=== PATIENT | female | born 1955 | race Caucasian/White ===

== ENCOUNTER 2020-04-29 03:49 | Emergency (ER) | payer BC, OTHER, SELFPAY ==
[2020-04-29 03:57] VITALS: BP 165/90; PULSE 92; RESP 17; TEMP 36.5; O2SAT 97
--- NOTE | 2020-04-29 04:00 | ED.GENADUL_ITS ---
Discharge Plan Disposition Patient Disposition: HOME Condition: Stable Discharge Details Chief Complaint: FlankPain Clinical Impression: Flank pain, Urinary tract infection Primary Care Provider: Criss,Local ED Provider: Rashad Rosen Home Meds and New Rx's Prescriptions: New levofloxacin 750 mg tablet 750 mg PO DAILY Qty: 5 RF: 0 Continued nifedipine 60 mg Tablet Extended Release 60 mg PO DAILY RF: 0 Discharge Instructions Instructions: Urinary Tract Infection in Women (ED) Additional Instructions: your cat scan did not show any kidney stone but did show degernative changes in the lumbar spine as well as a possible small splenic artery aneurysm. You should advise your primary care provider of these findings when you follow up in 1-2 weeks if you have severe worsening pain, fevers or feel more ill return to the emergency department Medical Decision Making 64 yo female with hx of htn and hld comes in with cc of left lower oblique and back pain since Friday. Denies any fevers, vomit, and no dysuria. Can't remember having pain like this in the past. She has no abdominal tenderness on exam or cva tenderness but does have pain with palpation to the left lower lumbar region. She could be having musculoskeletal back pain but given location of pain concern for possible pyelo vs kidney stone, will obtain renal colic CT and UA and monitor. Given lack of abdominal tenderness doubt intrabdominal pathology suchg as appendicitis or diverticulitis blood work unremarkable, UA consistent with infection. Will start levofloxacin to cover pyelo. CT shows no kidney stone, does have degenerative changes in the spine normal neuro exam no saddle anesthesia and also possible distal splenic artery aneurysm. I informed her of these results and she will f/u with pcp and return precautions given Differential Diagnosis Differential Diagnosis: pyelo, kidney stone, diverticulitis Imaging Data Radiologic Study: Attestation: I personally reviewed and interpreted this imaging study as follows: Imaging: CT Scan Radiologist's impression: IMPRESSION: 1. Lower lumbar degenerative disease with grade 1 anterolisthesis of L4 over L5. Central L4-L5 partially calcified disc herniation. If clinically appropriate, could consider spine MRI to better characterize. 2. Possible small distal splenic artery aneurysm. 3. Intrapelvic probable dystrophic calcifications Lab Data Lab results reviewed: Yes I reviewed the patient's lab results. HPI General Mode of arrival: ambulatory . Date/Time Provider Initiated Documentation: 04/29/20 03:51 . Limitations to Documentation: no limitations . Information obtained by: patient . History of Present Illness 64 year old F presents to the emergency department with the chief complaint of left flank pain, described as moderate, Patient started experiencing this day(s) (5) and it has been constant. No relieving factors improve symptom(s), No exacerbating factors reported . Patient did receive the following treatments prior to arrival, other (tylenol 2pm yesterday) Related Data Home Medications Medication Instructions Recorded Confirmed levofloxacin 750 mg PO DAILY #5 tab 04/29/20 nifedipine 60 mg PO DAILY 04/29/20 04/29/20 Previous Rx's Medication Instructions Recorded levofloxacin 750 mg PO DAILY #5 tab 04/29/20 Allergies Allergy/AdvReac Type Severity Reaction Status Date / Time No Known Allergies Allergy Unverified 04/29/20 04:03 Review of Systems All systems reviewed & are unremarkable except as noted in HPI and below Constitutional Constitutional: Denies chills, Denies fever(s) and Denies weakness Cardiovascular Cardiovascular: Denies chest pain and Denies dyspnea Respiratory Respiratory: Denies cough and Denies dyspnea Gastrointestinal Gastrointestinal: Denies vomiting Genitourinary Genitourinary: Denies dysuria Neurologic Neurologic: Denies weakness [facility] Social History Smoking/Tobacco Use Status: Never Drug use: Never Do you feel safe at home: Yes Do you feel safe in your relationship?: Yes Exam Const General: no acute distress Orientation: alert HENMT Head: normal to inspection Ears: external ears normal General nose exam: external nose normal Mouth: moist mucous membranes Eyes General: appearance normal, both eyes and all related structures Neck Neck: normal visual inspection Resp Effort & Inspection: normal respiratory effort and able to speak in complete sentences Cardio Rate: regular rate GI Palpation: soft and nontender Back/Spine/Pelvis Back: no CVA tenderness Skin General skin exam: no rashes or lesions noted Neuro General: patient alert and patient oriented x3 Extrem General: normal to inspection Psych Mental Status: mental status grossly normal
[2020-04-29 04:21] LABS: Abs Immature Grans 0.01 k/cumm (0.0-0.09); Absolute Basophil Count 0.04 k/cumm (0.0-0.2); Absolute Eosinophil Count 0.15 k/cumm (0.0-0.7); Absolute Lymphocyte Count 1.97 k/cumm (1.2-3.4); Absolute Monocyte Count 0.41 k/cumm (0.11-0.7); Absolute Neutrophil Count 2.62 k/cumm (1.2-6.7); Basophils % 0.8; Eosinophils % 2.9; HCT 41.2 % (36.0-46.0); Immature Grans % 0.2 %; Lymphocytes % 37.9; Mean Corpuscular Hemoglobin 31.3 pg (27.0-33.0); Mean Corpuscular Volume 92.2 fL (80-95); Monocytes % 7.9; Neutrophils % 50.3; Platelet Count 367 x1000/uL (130-400); RBC 4.47 m/cumm (4.00-5.20); RBC Distribution Width 13.1 % (11.7-14.6)
[2020-04-29 04:23] LABS: Lactate 0.5 mmol/L (0.6-1.4)
--- NOTE | 2020-04-29 04:25 | DI.CT_ITS ---
EXAM: CT RENAL COLIC WO CLINICAL HISTORY: left flank pain. TECHNIQUE: Imaging Protocol: Axial computed tomography images with coronal and sagittal reformatted images were created and reviewed. COMPARISON: No exams were available for comparison FINDINGS: ABDOMEN: Lung Bases: Minimal dependent atelectasis. Liver: Normal density. No measurable mass. Gallbladder and biliary tract: No radiodense calculus or biliary ductal dilation. Pancreas: Normal density, no abnormal calcifications or inflammatory process. Spleen: Normal. There is distal splenic artery enlargement with calcification suggesting a small aneu rysm. Kidneys: Normal size, contour and axis. No radiodense stones or obstructive uropathy. There is a 0.8 cm hypodensity in the superior pole of the right kidney which may reflect represent a cyst. Adrenal glands: No mass is seen. Lymph nodes: Within normal limits. Abdominal Aorta: Abdominal portion non-dilated. Atherosclerosis. PELVIS: Bladder: Symmetric distention, no gross wall thickening. Bowel: No obstruction or bowel wall thickening. No evidence of acute appendicitis. Moderate amount o f retained stool throughout the colon. Peritoneal cavity: No ascites, collection or mesenteric inflammatory response. Calcifications are see n in the pelvis likely reflecting phleboliths. The largest are seen in the right pelvis. Reproductive organs: The patient appears to be status post hysterectomy. Bones: Degenerative changes are present in the spine. Grade 1 pseudo spondylolisthesis of L4 on L5 i s noted. This, in conjunction with the degenerative changes and the diffuse disc bulge, appear to ca use moderately severe central spinal canal stenosis. Bilateral neural foraminal stenosis at this lev el is also noted. Soft Tissues: Within normal limits. IMPRESSION: 1. No evidence of nephrolithiasis or hydronephrosis. 2. Degenerative changes in the lumbar spine, particularly at L4-L5 which appears to cause moderately severe central spinal canal stenosis. RADIATION DOSE DELIVERED: 608.73mGy.cm Total DLP DATA REPOSITORY: All CT scans at this facility are submitted to the National Radiology Data Registry (NRDR) Dose Index Registry (DIR) with the [employer] ([employer]). RADIATION OPTIMIZATION: All CT scans at this facility use at least one of these dose optimization te chniques: automated exposure control; mA and/or kV adjustment per patient size (includes targeted exa ms where dose is matched to clinical indication); or iterative reconstruction.
[2020-04-29 04:28] LABS: Bilirubin Negative (Negative); Blood Negative (Negative); Clarity Sl Cloudy (Clear); Glucose Negative (Negative); Ketones Negative (Negative); Leukocyte Esterase Large (Negative); Nitrite Negative (Negative); Specific Gravity 1.015 (1.005-1.025); Urobilinogen 0.2 EU/dL (Up TO 0.2)
[2020-04-29 04:29] LABS: Bacteria Moderate HPF (Negative); C & S Indicated? Yes; Casts Negative LPF (Negative); Crystals Negative HPF (Negative); Epithelial Cells Few HPF (Negative); Mucus Negative (Negative); RBC 0-2 HPF (0-2)
[2020-04-29 04:32] LABS: Lipase 322 U/L (73-393)
[2020-04-29 04:35] LABS: ALT 52 U/L (14-59); AST 28 U/L (15-37); Alkaline Phosphatase 96 U/L (46-116); Anion Gap 10.6 mmol/L (3-11); BUN 20 mg/dL (7-18); Bilirubin, Direct 0.08 mg/dL (0.00-0.20); Bilirubin, Total 0.4 mg/dL (0.2-1.0); CO2 25.4 mmol/L (21.0-32.0); CREATININE 0.83 mg/dL (0.55-1.02); Calcium 8.6 mg/dL (8.5-10.1); Chloride 105 mmol/L (98-107); Glucose 105 mg/dL (74-106); Potassium 3.3 mmol/L (3.5-5.1); Sodium 141 mmol/L (136-145)
[2020-04-29] MEDS: Ketorolac 15 MG/ML VIAL IVP (04:36)
[2020-04-29] MEDS: Normal Saline 1,000 ML 1000 ML IV (04:36)
[2020-04-29] MEDS: levoFLOXacin 500 MG, levoFLOXacin 250 MG 750 MG PO (05:06)
[2020-04-29 05:24] VITALS: BP 146/63; PULSE 70; RESP 17; TEMP 36.5; O2SAT 96
--- NOTE | 2020-04-29 05:33 | DI.VRAD_ITS ---
PROCEDURE INFORMATION: Exam: CT Abdomen And Pelvis Without Contrast Exam date and time: 04/29/2020 4:00 AM Age: 64 years old Clinical indication: Abdominal pain; Flank; Left TECHNIQUE: Imaging protocol: Computed tomography of the abdomen and pelvis without contrast. Radiation optimization: All CT scans at this facility use at least one of these dose optimization techniques: automated exposure control; mA and/or kV adjustment per patient size (includes targeted exams where dose is matched to clinical indication); or iterative reconstruction. COMPARISON: No prior studies were available at the time of this dictation. FINDINGS: Lungs: Minimal dependent atelectasis. Liver: The liver is normal. Gallbladder and bile ducts: The gallbladder is fluid filled and unremarkable. Pancreas: The pancreas has a normal appearance. Spleen: The spleen is normal. Adrenals: Normal. No mass. Kidneys and ureters: Multiple right renal hypodensities. The largest is a right upper pole 8 mm lesion which is probably cystic. No renal calculi. No hydronephrosis. No ureteral calculus. Stomach and bowel: There is no evidence of intestinal perforation or obstruction. Redundancy of colon. Appendix: A normal appendix is evident. There is no appendicitis. Intraperitoneal space: See Reproductive finding. Vasculature: Splenic artery calcification. Distal splenic artery ectasia to 1 cm and is heavily calcified. Aortoiliac vascular calcification. No aneurysm. Intrapelvic phleboliths. Lymph nodes: Unremarkable. No enlarged lymph nodes. Bladder: Unremarkable as visualized. Reproductive: 8 mm right adnexal region calcification on image number 2:89. 12 mm intrapelvic probable dystrophic calcification on image 2:96. Bones/joints: Grade 1 anterolisthesis of L4 over L5. Mild L4-L5 disc height loss. Moderate L5-S1 disc height loss. Lower lumbar facet osteoarthropathy. Concern for central stenosis due to partially calcified disc herniation at L4-L5. Soft tissues: Unremarkable. IMPRESSION: 1. Lower lumbar degenerative disease with grade 1 anterolisthesis of L4 over L5. Central L4-L5 partially calcified disc herniation. If clinically appropriate, could consider spine MRI to better characterize. 2. Possible small distal splenic artery aneurysm. 3. Intrapelvic probable dystrophic calcifications. Dictated and Authenticated by: Nazario Zhu MD. Ordering:MARLEN Solorzano MD
== END 2020-04-29 05:48 | disposition home or self-care (01) ==
PROVIDERS: Emergency Provider Emergency Medicine
DX: N39.0 Urinary tract infection, site not specified (principal); M51.36 Other intervertebral disc degeneration, lumbar region; I10 Essential (primary) hypertension
CPT/HCPCS: 36415; 80053; 83690; 96361; 96374; 99284; 74176; 81003; 81015; 82248; 83605; 85025; 87086; J1885